=== PATIENT | female | born 1955 | race Caucasian/White ===

== ENCOUNTER 2016-03-20 08:31 | Outpatient (CLI) ==
[2015-07-07 10:22] VITALS: BMI 34.9
--- NOTE | 2016-03-20 09:15 | US ---
EXAM: THYROID ULTRASOUND HISTORY: Multinodular goiter FINDINGS: Ultrasound thyroid. Real time arenas-scale ultrasound and color Doppler imaging. COMPARISON: 08/02/2015 The right thyroid lobe measures 4.0 x 1.5 x 1.2 cm. The isthmus measures 0.52 cm. The left thyroid lobe measures 3.3 x 1.2 x 1.3 cm. Thyroid tissue is diffusely heterogeneous and hyperemic. Two nodules are noted in the right lobe, m id and inferior. The mid level nodule is 1.4 x 0.9 x 1.2 cm and the other 1.7 x 0.9 x 0.9 cm. Thes e nodules are isoechoic and solid with no increased internal vascularity or definite microcalcificat ion. There is a single nodule inferiorly on the left measuring 0.5 cm with similar characteristics. When compared to the prior study and allowing for slight differences in scanning and measuring angel hnique, the overall gland size, appearance and nodules appear stable. IMPRESSION: Grossly stable findings since 08/02/2015.
--- NOTE | 2016-03-20 09:50 | MAMMO ---
EXAM: Digital left diagnostic mammogram HISTORY: Left upper outer breast nodularity COMPARISON: Mammogram 61 and 20 16 and 08/12/2015 FINDINGS: CC, MLO and spot compression views of the breast were performed digitally and demonstrate unchanged breast density. There is no new abnormal nodule or calcification. The previously identi fied abnormal left breast nodularity is unchanged. IMPRESSION: Unchanged mild asymmetric left breast nodularity. RECOMMENDATION: Follow-up diagnostic left breast mammogram in 6 months. BIRADS category III: Probable benign findings
== END 2016-03-20 08:32 | disposition home or self-care (01) ==
LOC: RAD 08:31
PROVIDERS: ATTEND Nurse Practitioner Family
DX: R92.8 Other abnormal and inconclusive findings on diagnostic imaging of breast (principal); E04.2 Nontoxic multinodular goiter; Z09 Encounter for follow-up examination after completed treatment for conditions other than malignant neoplasm

== ENCOUNTER 2016-05-04 07:29 | Outpatient (CLI) ==
[2015-12-05 11:30] VITALS: BMI 34.9
[2016-05-04 07:49] LABS: BASOPHILS % (AUTO) 0.6 % (0.0-3.0); EOSINOPHILS # (AUTO) 0.3 K/ul (0.0-0.7); EOSINOPHILS % (AUTO) 4.3 % (0.0-7.0); HEMATOCRIT 41.6 % (37.0-47.0); HEMOGLOBIN 13.9 g/dl (12.0-16.0); IMMATURE GRANULOCYTE % (AUTO) 0.3 % (0.0-5.0); LYMPHOCYTES # (AUTO) 2.3 K/uL (0.60-3.4); MEAN CORPUSCULAR HEMOGLOBIN 29.8 pg (27.0-31.0); MEAN CORPUSCULAR HGB CONC 33.4 (31.8-35.4); MEAN CORPUSCULAR VOLUME 89.3 fl (81.0-99.0); MONOCYTES # (AUTO) 0.6 K/uL (0.4-2.0); MONOCYTES % (AUTO) 8.4 (0-10); NEUTROPHILS % (AUTO) 55.4; PLATELET COUNT 196 10^3/uL (140-440); RED BLOOD COUNT 4.66 10^6/ul (4.20-5.40); WHITE BLOOD COUNT 7.25 K/ul (4.6-10.2)
[2016-05-04 08:41] LABS: ALBUMIN 3.7 g/dL (3.4-5.0); ALBUMIN/GLOBULIN RATIO 1.09; ANION GAP 13.1; BILIRUBIN,TOTAL 0.35 mg/dL (0.00-1.20); BUN/CREATININE RATIO 12.34; CALCIUM 9.2 mg/dL (8.2-10.2); CHOL/HDL RATIO 5.8 (4.5-5.5); CREATININE 0.81 mg/dL (0.60-1.30); POTASSIUM 4.1 mmol/L (3.5-5.10); TOTAL PROTEIN 7.1 g/dL (6.4-8.2)
== END 2016-05-04 07:30 | disposition home or self-care (01) ==
LOC: LAB 07:29
PROVIDERS: ATTEND Nurse Practitioner Family
DX: F41.8 Other specified anxiety disorders (principal); E03.9 Hypothyroidism, unspecified; E78.5 Hyperlipidemia, unspecified
CPT/HCPCS: 36415; 80053; 80061; 84443; 85025

== ENCOUNTER 2016-05-25 10:04 | Outpatient (CLI) | payer OTHER ==
[2015-12-05 11:30] VITALS: BMI 34.9
[2016-05-25 10:59] LABS: ALBUMIN 3.7 g/dL (3.4-5.0); ALBUMIN/GLOBULIN RATIO 1.16; CALCIUM 9.2 mg/dL (8.2-10.2); POTASSIUM 4.3 mmol/L (3.5-5.10); TOTAL PROTEIN 6.9 g/dL (6.4-8.2)
[2016-05-25 11:00] LABS: ANION GAP 9.3; BILIRUBIN,TOTAL 0.39 mg/dL (0.00-1.20); BUN/CREATININE RATIO 11.84; CHOL/HDL RATIO 5.9 (4.5-5.5); CREATININE 0.76 mg/dL (0.60-1.30)
== END 2016-05-25 10:05 | disposition home or self-care (01) ==
LOC: LAB 10:04
PROVIDERS: ATTEND Nurse Practitioner Family
DX: E03.9 Hypothyroidism, unspecified (principal); E78.5 Hyperlipidemia, unspecified
CPT/HCPCS: 36415; 80053; 80061; 84439; 84443

== ENCOUNTER 2016-06-13 16:04 | Outpatient (CLI) ==
[2015-12-05 11:30] VITALS: BMI 34.9
[2016-06-13 16:14] LABS: FLU INTERNAL QC INTERNAL QC VALID; RAPID FLU A NEGATIVE (NEGATIVE); RAPID FLU B NEGATIVE (NEGATIVE)
--- NOTE | 2016-06-13 16:32 | DI ---
EXAM: Three x-rays of the chest. Comparison: None available. Reason for study: Cough. FINDINGS: No pneumothorax, pleural effusion, or focal consolidation. The cardiac silhouette is not enlarged. The imaged osseous structures are unremarkable. Impression: No acute cardiopulmonary process.
== END 2016-06-13 16:05 | disposition home or self-care (01) ==
LOC: LAB 16:04
PROVIDERS: ATTEND Nurse Practitioner Family
DX: R05 Cough (principal); R53.83 Other fatigue
CPT/HCPCS: 87804

== ENCOUNTER 2016-06-13 16:41 | Outpatient (CLI) ==
[2015-12-05 11:30] VITALS: BMI 34.9
== END 2016-06-13 16:42 | disposition home or self-care (01) ==
LOC: LAB 16:41
PROVIDERS: ATTEND Nurse Practitioner Family
DX: R05 Cough (principal); R53.83 Other fatigue

== ENCOUNTER 2016-12-27 16:03 | Outpatient (CLI) ==
[2015-12-05 11:30] VITALS: BMI 34.9
[2016-12-27 17:37] LABS: CHOL/HDL RATIO 6.2 (4.5-5.5)
== END 2016-12-27 16:04 | disposition home or self-care (01) ==
LOC: LAB 16:03
PROVIDERS: ATTEND Nurse Practitioner Family
DX: E78.5 Hyperlipidemia, unspecified (principal); E03.9 Hypothyroidism, unspecified
CPT/HCPCS: 36415; 80061; 84443

== ENCOUNTER 2017-08-20 07:29 | Outpatient (CLI) ==
[2015-12-05 11:30] VITALS: BMI 34.9
== END 2017-08-20 07:30 | disposition home or self-care (01) ==
LOC: LAB 07:29
PROVIDERS: ATTEND Nurse Practitioner Family
DX: E78.5 Hyperlipidemia, unspecified (principal); E03.9 Hypothyroidism, unspecified
CPT/HCPCS: 36415; 80053; 80061; 84443

== ENCOUNTER 2017-08-23 08:53 | Outpatient (CLI) ==
[2015-12-05 11:30] VITALS: BMI 34.9
== END 2017-08-23 08:54 | disposition home or self-care (01) ==
LOC: RAD 08:53
PROVIDERS: ATTEND Nurse Practitioner Family
DX: Z12.31 Encounter for screening mammogram for malignant neoplasm of breast (principal)
CPT/HCPCS: 77067

== ENCOUNTER 2017-09-26 07:27 | Outpatient (CLI) ==
[2015-12-05 11:30] VITALS: BMI 34.9
== END 2017-09-26 07:28 | disposition home or self-care (01) ==
LOC: LAB 07:27
PROVIDERS: ATTEND Nurse Practitioner Family
DX: E78.5 Hyperlipidemia, unspecified (principal)
CPT/HCPCS: 36415; 80053; 80061

== ENCOUNTER 2018-03-08 09:43 | Outpatient (CLI) ==
[2015-12-05 11:30] VITALS: BMI 34.9
== END 2018-03-08 09:44 | disposition home or self-care (01) ==
LOC: FCC-LAB 09:43
PROVIDERS: ATTEND Nurse Practitioner Family
DX: E03.9 Hypothyroidism, unspecified (principal)
CPT/HCPCS: 36415; 84443

== ENCOUNTER 2018-08-29 13:26 | Outpatient (CLI) ==
[2015-12-05 11:30] VITALS: BMI 34.9
== END 2018-08-29 13:55 | disposition short-term general hospital (02) ==
LOC: AMBL 13:26
PROVIDERS: ATTEND Emergency Medicine
DX: S99.911A Unspecified injury of right ankle, initial encounter (principal); R11.0 Nausea; W18.42XA Slipping, tripping and stumbling without falling due to stepping into hole or opening, initial encounter